=== PATIENT | male | born 1985 | race African-American/Black ===

== ENCOUNTER 2017-07-15 00:37 | Emergency (ER) | payer SELFPAY ==
[~2017-07-15] VITALS: Ht 188 cm; Wt 108.4 kg
--- NOTE | 2017-07-15 00:40 | NUR ---
PT BB RA39 & [employer] FROM [facility] [employer]. PER EMS & [employer] REPORT, PT WAS FOUND CRAWLING ON HANDS & KNEES WEARING ONLY UNDERWEAR AND A DOG COLLAR AROUND HIS NECK, AND ACTING LIKE A DOG. PT ANSWERS, "WOOF WOOF" WHEN ASKED QUESTIONS ON TRIAGE, BUT PT FOLLOWS COMMANDS THAT WOULD NORMALLY BE GIVEN TO A DOG. PT TAKEN TO ER BED 07 AND TRANSFERED HIMSELF TO THE ER BED WHEN GIVEN THE COMMAND "ROLL OVER ONTO THE BED." SKIN WARM, DRY. UNABLE TO OBTAIN TEMP ON TRIAGE; PT GROWLED WHEN ATTEMPTING TO TAKE TEMPERATURE. RR EVEN, UNLABORED. PLACED ON COMMERCIAL REAL ESTATE APPRAISER. VSS. PT ATTEMPTED TO BITE ME WHEN I REMOVED HIS DOG COLLAR. DR. PARIKH AT BEDSIDE FOR EVAL. AWAITING ORDERS. WILL CONT TO MONITOR.
[2017-07-15] MEDS ORDERED: HALOPERIDOL LACTATE INJ 5 MG/ML VIAL IM ONE (01:00)
[2017-07-15] MEDS ORDERED: HALOPERIDOL LACTATE INJ 5 MG/ML VIAL ONE (01:08)
--- NOTE | 2017-07-15 01:10 | NUR ---
LAB AT BEDSIDE FOR BLOOD DRAW
--- NOTE | 2017-07-15 01:15 | NUR ---
PT GIVEN IM HALDOL ORDERED. PT ON CARDIAC MONITORING.
[2017-07-15 01:24] LABS: BASOPHILS % (AUTO) 0.6 % (0.0-2.0); EOSINOPHILS % (AUTO) 0.2 % (0.0-6.0); HEMATOCRIT 44 % (39-51); HEMOGLOBIN 14.5 g/dL (13.5-17.5); LYMPHOCYTES # (AUTO) 0.5 /CMM (0.8-4.8); LYMPHOCYTES % (AUTO) 8.1 % (20.0-44.0); MEAN CORPUSCULAR HEMOGLOBIN 30 PG (26.0-33.0); MEAN CORPUSCULAR HGB CONC 33 g/dl (31.0-36.0); MEAN CORPUSCULAR VOLUME 91 fL (80-96); MONOCYTES # (AUTO) 0.3 /CMM (0.1-1.30); MONOCYTES % (AUTO) 5.4 % (2.0-12.0); NEUTROPHILS # (AUTO) 5.1 /CMM (1.8-8.9); NEUTROPHILS % (AUTO) 85.7 % (43.0-81.0); PLATELET COUNT (AUTO) 230 /CMM (150-450); RDW COEFFICIENT OF VARIATION 13.3 (11.5-15.0); RED BLOOD CELL COUNT(AUTO) 4.82 MIL/uL (4.5-6.0)
[2017-07-15 01:49] LABS: THYROID STIMULATING HORMONE 0.854 uIU/mL (0.358-3.74)
--- NOTE | 2017-07-15 02:24 | NUR ---
15FR IN/OUT CATHETER INSERTED USING [employer], URINE OBTAINED AND SENT TO THE LAB PER MD ORDERS.
[2017-07-15 02:30] LABS: CALCIUM, SERUM 9.8 mg/dL (8.5-10.1); CARBON DIOXIDE 26 mmol/L (21-32); CHLORIDE 104 mmol/L (98-107); CREATININE 1.3 mg/dL (0.6-1.3); GLUCOSE 108 mg/dL (74-106); POTASSIUM 4.5 mmol/L (3.5-5.1); SODIUM SERUM 141 mmol/L (136-145); UREA NITROGEN, BLOOD 19 mg/dL (7-18)
[2017-07-15 02:36] LABS: ACETAMINOPHEN 0 ug/ml (10-30); ALANINE AMINOTRANSFERASE 49 U/L (12-78); ALBUMIN 4.3 g/dL (3.4-5.0); ALCOHOL, BLOOD < 3 mg/dL (0-0); ALKALINE PHOSPHATASE 75 U/L (46-116); ASPARTATE AMINOTRANSFERASE 64 U/L (15-37); BILIRUBIN,DIRECT 0.2 mg/dL (0.0-0.2); BILIRUBIN,TOTAL 0.8 mg/dL (0.2-1.0); TOTAL PROTEIN, SERUM 7.8 g/dL (6.4-8.2)
--- NOTE | 2017-07-15 04:16 | NUR ---
PT RESTING QUIETLY. VSS/RESP EVEN UNLABORED.
--- NOTE | 2017-07-15 06:22 | NUR ---
SPOKE WITH PATIENT AT BEDSIDE, REFUSES TO GIVE HIS REAL NAME.
[2017-07-15] MEDS ORDERED: LORAZEPAM INJ 2 MG/ML VIAL IM ONE (06:30)
[2017-07-15] MEDS ORDERED: LORAZEPAM INJ 2 MG/ML VIAL ONE (06:32)
--- NOTE | 2017-07-15 07:52 | NUR ---
PATIENT PROVIDED NAME, ALERT AND ORIENTED AT THIS TIME. MD SPOKE WITH PATIENT AT BEDSIDE. WILL CONTINUE TO MONITOR.
[2017-07-15 08:07] VITALS: BP 132/78
--- NOTE | 2017-07-15 08:10 | NUR ---
Patient discharged to home in stable condition. Written and verbal after care instructions given. Patient verbalizes understanding of instruction.
== END 2017-07-15 08:10 | disposition home or self-care (01) ==
LOC: ER 00:40 → EDBD 00:40 → ER 08:10
DX: F23 Brief psychotic disorder (principal); F15.129 Other stimulant abuse with intoxication, unspecified
CPT/HCPCS: 36415; 51702; 80048; 80076; 80305; 80329; 84443; 85025; 96372 ×2; 99284; A4606; G0480 ×2; J1630; J2060; Z7610

== ENCOUNTER 2017-07-15 10:55 | Emergency (ER) | payer SELFPAY ==
[~2017-07-15] VITALS: Ht 177.8 cm; Wt 99.8 kg
[2017-07-15 10:55] VITALS: BP 148/81
== END 2017-07-15 18:24 | disposition home or self-care (01) ==
LOC: ER 10:59
DX: F15.10 Other stimulant abuse, uncomplicated (principal)
CPT/HCPCS: 99283; A4606; Z7610